=== PATIENT | male | born 1940 | race Caucasian/White ===

== ENCOUNTER → 2018-12-21 | Outpatient (CLI) | payer OTHER | LOC: CAT 13:27 | DX: Z13.6 Encounter for screening for cardiovascular disorders (principal); E78.00 Pure hypercholesterolemia, unspecified; I25.10 Atherosclerotic heart disease of native coronary artery without angina pectoris ==

== ENCOUNTER → 2018-12-31 | Outpatient (CLI) | payer OTHER, BC | LOC: ULTRA 09:28 | DX: R09.89 Other specified symptoms and signs involving the circulatory and respiratory systems (principal); R93.1 Abnormal findings on diagnostic imaging of heart and coronary circulation; Z88.8 Allergy status to other drugs, medicaments and biological substances ==